=== PATIENT | female | born 2000 | race Caucasian/White ===

== ENCOUNTER 2022-12-31 21:42 | Emergency (ER) | payer BC ==
[~2022-12-31] VITALS: Ht 165.1 cm; Wt 70.0 kg
[2022-12-31 21:45] VITALS: O2SAT 100
[2022-12-31] MEDS ORDERED: SODIUM CHLORIDE 0.9% 1,000 ML IV ONE (22:15)
[2022-12-31] MEDS ORDERED: LORAZEPAM 2MG/ML CPJ IM ONE (22:30)
[2022-12-31 22:45] LABS: BASOPHILS % 0.9 % (0.0-2.0); EOSINOPHILS % 0.3 % (0.0-5.0); HEMATOCRIT. 39.3 % (36.0-48.0); HEMOGLOBIN. 13.5 g/dL (12.0-16.0); LYMPHOCYTES % 23.6 % (20.0-50.0); MEAN CORPUSCULAR HEMOGLOBIN 27.7 pg (28.0-32.0); MEAN CORPUSCULAR HGB CONC 34.2 g/dL (31.0-37.0); MEAN PLATELET VOLUME 7.9 fl (7.4-10.4); MONOCYTES % 5.9 % (2.0-8.0); NEUTROPHILS % 69.3 % (40.0-76.0); PLATELET 352 x1000/uL (130-400); RED BLOOD CELL COUNT 4.86 mill/uL (4.2-5.4); RED CELL DISTRIBUTION WIDTH 14.3 % (11.6-14.6); WHITE BLOOD COUNT 11.4 x1000/uL (4.5-11.0)
[2022-12-31 22:53] LABS: HCG SCREEN NEGATIVE
[2022-12-31] MEDS ORDERED: LORAZEPAM 2MG/ML CPJ IV ONE (23:15)
[2023-01-01 01:06] LABS: CALCIUM 8.2 mg/dL (8.5-10.1); CHLORIDE 112 mEq/L (98-107); INDEX HEMOLYSI 1 (1-3); INDEX ICTERIC 1 (1-4); INDEX LIPEMIC 1 (1-3); POTASSIUM 3.5 mEq/L (3.5-5.1); SODIUM 144 mEq/L (136-145)
[2023-01-01] MEDS ORDERED: ONDANSETRON HCL 4MG/2ML INJ IV STA (01:36)
[2023-01-01 01:37] LABS: ALANINE AMINOTRANSFERASE 16 IU/L (13-61); ALBUMIN 4.3 g/dL (3.4-5.0); ASPARTATE AMINOTRANSFERASE 16 IU/L (15-37); BILIRUBIN TOTAL 0.3 mg/dL (0.1-1.0); CREATININE 0.7 mg/dL (0.6-1.3); ETHANOL BLOOD 195 mg/dL (<10); GLUCOSE 106 mg/dL (70-105); PROTEIN TOTAL 7.7 g/dL (6.0-8.3); UREA NITROGEN BLOOD 10 mg/dL (7-21)
[2023-01-01] MEDS ORDERED: SODIUM CHLORIDE 0.9% 1,000 ML IV ONE (01:45)
[2023-01-01 06:22] VITALS: BP 121/66; PULSE 89; RESP 20; TEMP 98
[2023-01-01 11:47] LABS: CARBON DIOXIDE 21 mEq/L (21-32)
== END 2023-01-01 06:59 | disposition home or self-care (01) ==
LOC: ER 21:42
DX: F10.129 Alcohol abuse with intoxication, unspecified (principal); R55 Syncope and collapse; F41.9 Anxiety disorder, unspecified; F31.9 Bipolar disorder, unspecified; Z88.0 Allergy status to penicillin; Z88.8 Allergy status to other drugs, medicaments and biological substances; Y90.6 Blood alcohol level of 120-199 mg/100 ml
CPT/HCPCS: 81025; 84703; 85025; 36415; 93005; 96374; 99285; 80053; 80320; 70450; 96375; J2060; J7030 ×2; Z7610 ×2; J2405; G0480